=== PATIENT | male | born 1960 | race Caucasian/White ===

== ENCOUNTER 2018-02-15 09:35 | Outpatient (CLI) | payer OTHER ==
--- NOTE | 2018-02-15 12:00 | CT ---
NECK CT WITH CONTRAST: Date: 02-15-18 Comparison: None. History: Right sided neck pain radiating up towards the right ear. History of right sided carotid bod y tumor. Technique: Serial axial CT imaging obtained at 2 mm intervals from the skull base through the lung ap ices with IV contrast. Coronal and reformatted imaging obtained. FINDINGS: The retroantral and the peripharyngeal fat is clear bilaterally. The parotid and submandibular glands appear unremarkable. The imaged lung parenchyma appears grossly unremarkable. Imaged brain parenchyma appears grossly unremarkable. An area of patient reported pain is marked with a needle cap within the lateral aspect of the mid rig ht neck. In this region there is no mass or fluid collection. The underlying sternocleidomastoid musc le is normal in caliber. Imaged paranasal sinuses/mastoid air cell is grossly unremarkable. The tonsillar pillars, epiglottis and preepiglottic fat, hyoid bone, thyroid cartilage, thyroid gland and cricoid cartilage appear grossly unremarkable. The vascular structures appear grossly unremarkable. No mass lesion or lymphadenopathy noted. Osseous structures of the neck demonstrate no acute findings. There is scattered degenerative change noted within the cervical spine which includes relatively mild multilevel facet hypertrophy, anterior osteophyte formation at C5-6 and degenerative change at the a tlantoaxial interspace. IMPRESSION: No mass lesion or evidence of lymphadenopathy is seen. POS: KYM
== END 2018-02-15 09:36 | disposition home or self-care (01) ==
LOC: SCSCT 09:35
PROVIDERS: ATTEND Otolaryngology Plastic Surgery within the Head & Neck
DX: R22.1 Localized swelling, mass and lump, neck (principal)
CPT/HCPCS: 70491